=== PATIENT | female | born 1995 | race Caucasian/White ===

== ENCOUNTER 2022-11-14 18:50 | Emergency (ER) | payer MEDICAID ==
[~2022-11-14] VITALS: Ht 154.9 cm; Wt 54.4 kg
[2022-11-14 18:50] VITALS: BP_SYST 121
[2022-11-14] MEDS ORDERED: ONDANSETRON 4 MG ODT TAB PO ONE (20:00)
[2022-11-14] MEDS ORDERED: VIS25 PO (20:23)
[2022-11-14] MEDS ORDERED: ONDA8TAB60 PO (20:23)
[2022-11-14 21:56] LABS: BASOPHILS % (AUTO) 0.3 % (0.0-2.0); HEMATOCRIT 39.5 % (36-48); HEMOGLOBIN 13.7 g/dL (12.0-16.0); LYMPHOCYTES # (AUTO) 1.6 K/uL (1.0-5.5); MEAN CORPUSCULAR HEMOGLOBIN 31 pg (27-31); MEAN CORPUSCULAR HGB CONC 35 % (32-36); MEAN CORPUSCULAR VOLUME 90 fL (79.0-98.0); MONOCYTES # (AUTO) 0.4 K/uL (0.0-1.0); MONOCYTES % (AUTO) 3.1 % (1.7-9.3); NEUTROPHILS % (AUTO) 83.6 % (40.0-70.0); PLATELET COUNT (AUTO) 236 K/uL (130-430); RED BLOOD CELL COUNT(AUTO) 4.37 MIL/uL (4.2-6.2)
[2022-11-14 22:02] LABS: ANION GAP 13 (5-15); CALCIUM 8.8 mg/dL (8.4-11.0); CHLORIDE 99 mmol/L (98-107); GFR AFRICAN AMERICAN 154 mL/min (>90); GLUCOSE 138 mg/dL (70-99); UREA NITROGEN, BLOOD 9 mg/dL (8-21)
[2022-11-14 22:07] LABS: ALANINE AMINOTRANSFERASE 37 U/L (12-78); ALCOHOL, BLOOD 27 mg/dL (<10); ASPARTATE AMINOTRANSFERASE 20 U/L (10-37); TOTAL BILIRUBIN 0.6 mg/dL (0.0-1.0)
[2022-11-14 22:26] LABS: ACETAMINOPHEN < 1 ug/mL (1-30)
[2022-11-14 23:38] LABS: BILIRUBIN,URINE NEGATIVE (NEGATIVE); BLOOD, URINE NEGATIVE (NEGATIVE); CLARITY/URINE CLEAR (CLEAR); COLOR,URINE YELLOW (YELLOW); GLUCOSE,URINE TRACE (NEGATIVE); KETONES,URINE 1+ (NEGATIVE); LEUKOCYTE ESTERASE ,URINE NEGATIVE (NEGATIVE); NITRITE, URINE NEGATIVE (NEGATIVE); PH,URINE 6.5 (5.0-8.0); PROTEIN URINE NEGATIVE (NEGATIVE); UROBILINOGEN,URINE 0.2 (0.2-1.0)
[2022-11-15 00:01] LABS: BARBITURATE, URINE NEGATIVE (NEG <=200); BENZODIAZEPINE, URINE NEGATIVE (NEG <=150); CANNABINOID, URINE NEGATIVE (NEG <=50); COCAINE, URINE NEGATIVE (NEG <=150); METHAMPHETAMINES SCREEN,URINE POSITIVE (NEG <=500); OPIATE, URINE NEGATIVE (NEG <=100); PHENCYCLIDINE SCREEN,URINE NEGATIVE (NEG <=25); URINE AMPHETAMINE NEGATIVE (NEG <=500); URINE METHADONE NEGATIVE (NEG <=200); URINE OXYCODONE SCREEN NEGATIVE (NEG <=100); URINE PROPOXYPHENE SCREEN NEGATIVE (NEG <=300)
[2022-11-15 00:02] LABS: UR TRICYCLIC ANTIDEPRESSANTS NEGATIVE (NEG <=300)
[2022-11-15] MEDS ORDERED: traZODone HCL 50 MG TABLET (DESYREL) PO ONE (02:45)
[2022-11-15 07:50] VITALS: BP_SYST 128
== END 2022-11-15 07:52 ==
LOC: SED 18:50
DX: F14.10 Cocaine abuse, uncomplicated (principal); F15.10 Other stimulant abuse, uncomplicated; R07.9 Chest pain, unspecified; R00.2 Palpitations; R53.1 Weakness; Z79.899 Other long term (current) drug therapy; Z20.822 Contact with and (suspected) exposure to COVID-19
CPT/HCPCS: 99285; 87426; 80307; 80053; 85025; 36415; 93005; 81003; G0482; Q0162; G0480; G0481

== ENCOUNTER 2023-10-10 07:08 | Emergency (ER) | payer MEDICAID ==
[~2023-10-10] VITALS: Ht 162.6 cm; Wt 81.6 kg
[~2023-10-10 07:08] MED LIST: ONDA8TAB60 PO; VIS25 PO
[2023-10-10 07:10] VITALS: BP_SYST 124; PULSE 152; RESP 22; TEMP 98; O2SAT 99
[2023-10-10 07:48] LABS: BASOPHILS # (AUTO) 0.1 K/uL (0.0-0.2); BASOPHILS % (AUTO) 0.4 % (0.0-2.0); EOSINOPHILS % (AUTO) 0.2 % (0.0-4.0); HEMATOCRIT 45.1 % (36-48); HEMOGLOBIN 15.9 g/dL (12.0-16.0); LYMPHOCYTES # (AUTO) 3.6 K/uL (1.0-5.5); MEAN CORPUSCULAR HEMOGLOBIN 32 pg (27-31); MEAN CORPUSCULAR HGB CONC 35 % (32-36); MEAN CORPUSCULAR VOLUME 90 fL (79.0-98.0); MONOCYTES # (AUTO) 0.7 K/uL (0.0-1.0); NEUTROPHILS # (AUTO) 9.5 K/uL (1.8-7.7); NEUTROPHILS % (AUTO) 68.4 % (40.0-70.0); PLATELET COUNT (AUTO) 350 K/uL (130-430); RED BLOOD CELL COUNT(AUTO) 5.03 MIL/uL (4.2-6.2); RED CELL DISTRIBUTION WIDTH 13.6 % (9.0-15.0); WHITE BLOOD COUNT (AUTO) 13.9 K/uL (4.8-10.8)
[2023-10-10 07:58] LABS: CALCIUM 8.3 mg/dL (8.4-11.0); CREATININE 0.95 mg/dL (0.55-1.30); POTASSIUM 3.5 mmol/L (3.5-5.1)
[2023-10-10 08:02] LABS: ALBUMIN 4.3 g/dL (3.4-4.8); BILIRUBIN,DIRECT 0.2 mg/dL (0.0-0.3); TOTAL BILIRUBIN 0.9 mg/dL (0.0-1.0); TOTAL PROTEIN, SERUM 8.5 g/dL (6.4-8.3)
[2023-10-10] MEDS: ONDANSETRON HCL 4 MG/2 ML VIAL IVP ONE (08:04)
[2023-10-10] MEDS: NACL 0.9% 1,000 ML IV ONE (08:04)
[2023-10-10] MEDS: LORazepam 2 MG/ML VIAL IVP ONE (08:21)
[2023-10-10 08:43] LABS: BILIRUBIN,URINE NEGATIVE (NEGATIVE); BLOOD, URINE 3+ (NEGATIVE); CLARITY/URINE SL CLOUDY (CLEAR); COLOR,URINE YELLOW (YELLOW); GLUCOSE,URINE NEGATIVE (NEGATIVE); KETONES,URINE NEGATIVE (NEGATIVE); LEUKOCYTE ESTERASE ,URINE NEGATIVE (NEGATIVE); NITRITE, URINE NEGATIVE (NEGATIVE); PROTEIN URINE 2+ (NEGATIVE); UROBILINOGEN,URINE 0.2 (0.2-1.0)
[2023-10-10] MEDS: ALBUTEROL SULFATE 0.083% 2.5 MG/3 ML VIAL.NEB INH ONE (08:43)
[2023-10-10 09:19] LABS: BACTERIA,URINE RARE /HPF (None Seen); HYALINE CASTS, URINE 0 - 3 /LPF (None Seen); RBC,URINE 50-80 /HPF (0-3); WBC,URINE 0-3 /HPF (0-3)
[2023-10-10 09:21] LABS: BARBITURATE, URINE NEGATIVE (NEG <=200); BENZODIAZEPINE, URINE NEGATIVE (NEG <=150); CANNABINOID, URINE NEGATIVE (NEG <=50); COCAINE, URINE NEGATIVE (NEG <=150); METHAMPHETAMINES SCREEN,URINE POSITIVE (NEG <=500); OPIATE, URINE NEGATIVE (NEG <=100); PHENCYCLIDINE SCREEN,URINE NEGATIVE (NEG <=25); UR TRICYCLIC ANTIDEPRESSANTS NEGATIVE (NEG <=300); URINE AMPHETAMINE POSITIVE (NEG <=500); URINE METHADONE NEGATIVE (NEG <=200); URINE OXYCODONE SCREEN NEGATIVE (NEG <=100)
[2023-10-10] MEDS: QUEtiapine FUMARATE 25 MG TABLET PO ONE (11:40)
[2023-10-10] MEDS: METOCLOPRAMIDE HCL 10 MG/2 ML VIAL IVP ONE (11:59)
[2023-10-10] MEDS: KETOROLAC TROMETHAMINE 30 MG VIAL IVP ONE (12:07)
[2023-10-10 15:29] VITALS: BP_SYST 125; PULSE 90; RESP 19; TEMP 98; O2SAT 97
== END 2023-10-10 15:25 | disposition short-term general hospital (02) ==
LOC: SED 07:08
DX: R45.851 Suicidal ideations (principal); R10.13 Epigastric pain; F19.10 Other psychoactive substance abuse, uncomplicated; F10.129 Alcohol abuse with intoxication, unspecified; F15.10 Other stimulant abuse, uncomplicated; Y90.4 Blood alcohol level of 80-99 mg/100 ml
CPT/HCPCS: 99285; 96374; 96375; 71045; 96361; 80307; 80076; 80048; 81000; 81001; 84702; 83690; 85025; 84484; 36415; 93005; 94640; 81015; J1885; J2060; J2765; J2405; J7030; G0482